=== PATIENT | male | born 1940 | race Caucasian/White ===

== ENCOUNTER 2016-05-16 09:11 | Emergency (ER) | payer MEDICARE, OTHER ==
--- NOTE | ~2016-05-16 | CN ---
Consultation Report [facility] [address] [place]. [address] NAME: STACY MASSEY JR : 38 STATUS : ADM IN PAT#: [id number] AGE: 75 ADM/REG DATE : 05/16/16 MR#: [id number] REPORT SERV DATE: 05/16/16 DICTATED BY: PRANAV SOMMER DATE: 05/16/16 REPORT STATUS : Draft TRANSCRIBED BY: MODL DATE: 05/16/16 INFECTIOUS DISEASE CONSULTATION DATE OF CONSULTATION: 05/16/2016 REASON FOR CONSULTATION: Foot infection. 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 The patient states that he noticed some blood on the bottom of his left foot about four weeks ago, a day after doing water aerobics. He thinks he cut the foot, but he is not sure. About a week later, he developed some persistent discomfort in that area, but no other real problems. However, last week and a week ago, he developed bad chills and flu-like symptoms. He saw his primary care office on 05/12/2016 and was prescribed Levaquin and felt better in general except the foot continues to be uncomfortable such that he had trouble wearing his shoe. This morning, he knows it was really swollen and this is what brought him to the emergency department where he was found to have a normal white blood cell count and stable vital signs, but swelling and erythema of the foot. Blood cultures were obtained. He was given a dose of vancomycin and Zosyn. He was evaluated by Dr. Smith. An x-ray was done, which showed soft tissue swelling of the plantar forefoot, but no evidence of osteomyelitis. The patient was seen by Dr. Francis, and he performed a bedside incision and drainage of a superficial abscess with 2 mL of purulence obtained without any evidence of any deep tracking. MRI scan was ordered and the results are pending. The patient denies any previous foot infections. PAST MEDICAL HISTORY: In addition to the above notable for hypertension, hyperlipidemia, and hypothyroidism. ALLERGIES: NONE. OUTPATIENT MEDICATIONS: Included aspirin, Lipitor, coenzyme Q, vitamin B12, Levaquin as mentioned, levothyroxine, lisinopril, and metoprolol. 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 He does not smoke, occasional beer, lives with his . Remains active walking a lot and playing golf. FAMILY HISTORY: Unremarkable. REVIEW OF SYSTEMS: No chest pain, shortness of breath, nausea, vomiting, or diarrhea. PHYSICAL EXAMINATION: VITAL SIGNS: This is a 104 kg man who is alert, afebrile, blood pressure 149/70, pulse 88, and respiratory rate 14. Consultation Report [address] [address] NAME: STACY MASSEY JR : 39 STATUS : ADM IN [facility]#: [id number] AGE: 75 ADM/REG DATE : 05/16/16 MR#: [id number] REPORT SERV DATE: 05/16/16 DICTATED BY: PRANAV SOMMER DATE: 05/16/16 REPORT STATUS : Draft TRANSCRIBED BY: YANELI DATE: 05/16/16 GENERAL: He is in no distress at all. HEAD AND NECK: Shows clear oral cavity. LUNGS: Clear to auscultation. CARDIAC: Regular rate and rhythm without murmur, gallop, or rub. ABDOMEN: Soft, nontender. EXTREMITIES: The left foot has diffuse edema and mild warmth compared to the right foot, and there is some mild erythema of the dorsum of the forefoot on the plantar aspect of the foot. There is the wound where superficial blister like lesion was removed by Dr. Smith with some surrounding soft tissue swelling and mild erythema and tenderness to palpation. The patient has a peripheral IV. LABORATORY STUDIES: White blood cell count 5.9, hemoglobin 13.5, and platelets 173. Creatinine 0.93. Liver function tests normal. IMPRESSION: Subcutaneous abscess with cellulitis of the left foot. Doubt underlying osteomyelitis. The patient has neuropathy of unclear etiology. PLAN: Pending wound culture results. We will treat with vancomycin and oral Levaquin and follow up on the cultures tomorrow in the final MRI report. Hope to be able to discharge the patient on oral antibiotics soon. JUANCHO/YANELI Pranav Sommer M.D. / [id number] CC: Tirso Meraz DO
--- NOTE | ~2016-05-16 | HP ---
History And Physical [place] [id number] [facility] [place]. [address] NAME: STACY MASSEY JR : 38 STATUS : ADM IN [facility]#: [id number] AGE: 75 ADM/REG DATE : 05/16/16 MR#: [id number] REPORT SERV DATE: 05/16/16 DICTATED BY: TRISH CURTIS DATE: 05/16/16 REPORT STATUS : Draft TRANSCRIBED BY: YANELI DATE: 05/16/16 DATE OF ADMISSION: 05/16/2016 REASON FOR ADMISSION: Left foot cellulitis, possible abscess, possible osteomyelitis. HISTORY OF PRESENT ILLNESS: The patient is a 75-year-old white male, who relates a four-week history of cutting his left foot while doing water aerobics. He states initially he did not think anything of the minor cut, but out over the past four weeks redness and swelling occurred, which over the past four days had worsened substantially. He states over the past four days he has not felt well and described flu-like symptoms. He denies vomiting, denies nausea, denies fever. The patient relates mild left foot pain. However, the patient has a history of neuropathy and is not diabetic. The patient states he went to his primary care physician, who placed him on Levaquin which did not improve the swelling and pain and he presented to the emergency room today. PAST MEDICAL HISTORY: Includes hypertension, hypercholesterolemia, and neuropathy of unknown origin. MEDICATIONS: Lengthy list of medications were reviewed in the chart. ALLERGIES: NO KNOWN DRUG ALLERGIES. SOCIAL HISTORY: Denies alcohol, tobacco, or illicit drug use. FAMILY HISTORY: Unremarkable. REVIEW OF SYSTEMS: No other pertinent findings on review of systems other than stated above. Denies chest pain. Currently, denies nausea, vomiting, fever, or chills. The left foot as described above. PHYSICAL EXAMINATION: GENERAL: The patient is a well-developed white male, seen at bedside with present, resting comfortably. Alert and oriented x3. No apparent distress. VITAL SIGNS: Stable. HEENT: Normocephalic, atraumatic. No visible drainage. LUNGS: Unlabored breathing with normal respiratory effort. CARDIOVASCULAR: Regular rate and rhythm. Palpable pedal pulses. Cap refill time less than 3 seconds. Digits 1 through 10 tested. DERMATOLOGICAL: There is a superficial abscess at the level of epidermis present to the left foot. There is global forefoot swelling and erythema. Again the fluctuance is within the epidermal layer. There is a hyperkeratotic region to the sub 2nd metatarsal head region. Upon de-natali of the superficial blister, purulence was expressed and cultured. The callus was debrided. There was a full-thickness ulceration with no probing to bone. No fluctuance appreciated at that level. The superficial blister tracked proximally from the callus region. There was no soft tissue crepitus noted. The proximal streaking extended to History And Physical [address] [address] NAME: STACY MASSEY JR : 39 STATUS : ADM IN PAT#: [id number] AGE: 75 ADM/REG DATE : 05/16/16 MR#: [id number] REPORT SERV DATE: 05/16/16 DICTATED BY: TRISH CURTIS DATE: 05/16/16 REPORT STATUS : Draft TRANSCRIBED BY: MODL DATE: 05/16/16 the level of the mid foot medially. LABORATORIES: White count 5.9, H and H 13.5 and 40.2. INR 1.1. ASSESSMENT: Left foot cellulitis. Possible abscess eval for osteomyelitis. PLAN: Today, bedside incision and drainage of the superficial abscess was performed with a less than 2 mL expressed. It should be noted that this was not deep in nature was in the superficial layer right below the epidermis. There was no probing, no tracking at the level of the ulceration site to the sub 2nd metatarsal head and no soft tissue crepitus and no deep fluctuance appreciated. I will order an MRI with contrast eval for osteomyelitis and possible further deep abscess. Infectious Disease consultation as well as hospitalist consultation was ordered. Sterile dressing applied today and I will follow the patient on the floor. SHERINE/YANELI Almas Curtis D.P.M. / [id number] CC: Tirso Meraz DO
[2016-05-16 09:04] LABS: BASOPHILS 0.2 %; BASOPHILS ABSOLUTE 0.01 10/3/uL (0.0-0.16); EOSINOPHILS 3.9 %; EOSINOPHILS ABSOLUTE 0.23 10/3/uL (0.0-0.53); ER CBC TAT 0 Hrs 07 Mins; HEMATOCRIT 40.2 % (40.0-51.0); HEMOGLOBIN 13.5 g/dL (13.6-17.8); IMMATURE GRANULOCYTES 0.5 %; IMMATURE GRANULOCYTES ABSOLUTE 0.03 10/3/uL (0.0-0.11); LYMPHOCYTES 24.4 %; LYMPHOCYTES ABSOLUTE 1.43 10/3/uL (0.67-4.30); MEAN CORPUS HGB CONC 33.6 g/dL (32.0-36.0); MEAN CORPUSCULAR HEMOGLOB 31.9 pg (26.0-34.0); MEAN PLATELET VOLUME 9.9 fL (9.2-13.0); MONOCYTES 13.5 %; MONOCYTES ABSOLUTE 0.79 10/3/uL (0.21-1.20); NEUTROPHILS 57.5 %; NEUTROPHILS ABSOLUTE 3.38 10/3/uL (2.02-8.40); PLATELET COUNT 173 10/3/uL (150-400); RBC DISTRIBUTION WIDTH 13.2 % (12.0-16.0); RED CELL COUNT 4.23 10/6/uL (4.7-6.1); WHITE BLOOD CELLS 5.9 10/3/uL (4.5-10.5)
[2016-05-16 09:07] LABS: MANUAL DIFF NO %
[2016-05-16 09:09] LABS: INTERNATIONAL NORMAL RATI 1.1 UNITS (-); PROTIME (NOT ORD) 14.4 SEC (12.0-14.5)
[2016-05-16 09:10] LABS: PARTIAL THROMBO TIME 29.6 SEC (22.5-37.2)
[2016-05-16 09:18] LABS: ALKALINE PHOSPHATASE 69 U/L (45-117); BUN (BLOOD UREA NITROGEN) 16 MG/DL (6-23); CALCIUM, SERUM 8.6 MG/DL (8.5-10.4); CHLORIDE, SERUM 107 MMOL/L (96-112); CO2 (CARBON DIOXIDE) 24 MMOL/L (24-34); CREATININE 0.93 MG/DL (0.70-1.30); GFR AFRICAN AMERICAN 92 ML/MIN (>=60); GFR NON AFRICAN AMERICAN 79 ML/MIN (>=60); POTASSIUM, SERUM 4.1 MMOL/L (3.5-5.3); SGOT(AST) 28 U/L (5-40); SGPT(ALT) 37 U/L (5-65); SODIUM, SERUM 141 MMOL/L (135-148); TOTAL BILIRUBIN 0.5 MG/DL (0-1.2); TOTAL PROTEIN 6.8 G/DL (6.0-8.5)
[2016-05-16 09:19] LABS: A/G RATIO 0.7 (0.7-1.9); ALBUMIN 2.7 G/DL (3.5-5.0); GLOBULIN 4.1 G/DL (2.5-4.1); GLUCOSE, SERUM 85 MG/DL (60-99)
[2016-05-16] MEDS ORDERED: LIPITOR20 PO (09:53)
[2016-05-16] MEDS ORDERED: LEVOTHYROXIN50 MCG PO (09:54)
[2016-05-16] MEDS ORDERED: TOPXL50 PO (09:54)
[2016-05-16] MEDS ORDERED: CYANO1000T PO (09:54)
[2016-05-16] MEDS ORDERED: CO Q-10200 MG PO (09:54)
[2016-05-16] MEDS ORDERED: ZESTRIL20 MG PO (09:54)
[2016-05-16] MEDS ORDERED: HALF81 PO (09:55)
[2016-05-16] MEDS ORDERED: LEVAQUIN750 MG PO (09:55)
[2016-05-18] MEDS ORDERED: SEPTRA DS1 TAB PO (12:48)
== END 2016-05-18 13:54 | disposition home or self-care (01) ==
LOC: ER 09:11
PROVIDERS: Emergency Medicine
DX: L08.9 Local infection of the skin and subcutaneous tissue, unspecified (principal); I10 Essential (primary) hypertension; E78.5 Hyperlipidemia, unspecified; G57.90 Unspecified mononeuropathy of unspecified lower limb; Z79.82 Long term (current) use of aspirin; Z79.899 Other long term (current) drug therapy
CPT/HCPCS: 73630-LT; 73720-LT; 80053; 85025; 85610; 85730; 87040; 87070; 87075; 87077; 87102; 87186; 87205; 93005; 96374; 99285; A9270-GY; A9577; J2543; J3370